=== PATIENT | male | born 1960 | race Caucasian/White ===

== ENCOUNTER → 2018-03-02 | Day surgery (SDC) | payer OTHER ==
[~2018-03-02] MED LIST: ATROPINE 0.5 MG/5 ML DISP.SYRIN. IV PRN; INSU100I13 SQ; INSU100V SQ; IV RINGERS SOLUTION,LACTATED 1,000 ML IV SCH; LIDOCAINE 2% PF Vial for OR 5 ML VIAL. ONE; ONDANSETRON PF 4 MG/2 ML VIAL. IV PRN; PROPOFOL 40 ML IV ONE
[2018-03-02 09:10] VITALS: BP 110/64
== END | disposition home or self-care (01) ==
LOC: SURG 07:09
PROVIDERS: ATTEND Internal Medicine Gastroenterology
DX: Z12.11 Encounter for screening for malignant neoplasm of colon (principal); K63.5 Polyp of colon; I10 Essential (primary) hypertension; E11.9 Type 2 diabetes mellitus without complications; G89.29 Other chronic pain; Z79.4 Long term (current) use of insulin
CPT/HCPCS: 45385; 82947; J2704; J7120; 45380; J2001

== ENCOUNTER → 2020-12-31 | Outpatient (CLI) | payer OTHER ==
[2018-03-02 09:10] VITALS: BP 110/64
[~2020-12-31] MED LIST changes: -ATROPINE 0.5 MG/5 ML DISP.SYRIN. IV PRN; -IV RINGERS SOLUTION,LACTATED 1,000 ML IV SCH; -LIDOCAINE 2% PF Vial for OR 5 ML VIAL. ONE; -ONDANSETRON PF 4 MG/2 ML VIAL. IV PRN; -PROPOFOL 40 ML IV ONE
--- NOTE | 2020-12-31 15:11 | RAD ---
EXAM: Bilateral knees, 3 views. HISTORY: Pain. COMPARISON: None. FINDINGS: 3 views of both knees are obtained. There is severe left greater than right medial compartm ent joint space narrowing. There is moderate medial compartment predominant tricompartmental spurring . There is mild bilateral genu varus. There are small knee effusions. There is enthesopathy along the superior right patella. IMPRESSION: 1. Severe left greater than right medial compartment predominant osteoarthritis of both knees with sm all joint effusions and mild genu varus. 2. No acute osseous finding. Electronically signed by: Reina Arevalo MD (12/31/2020 3:09 PM) [id number]
== END ==
LOC: RAD 14:38
PROVIDERS: ATTEND Orthopaedic Surgery
DX: M17.0 Bilateral primary osteoarthritis of knee (principal); M76.892 Other specified enthesopathies of left lower limb, excluding foot; M76.891 Other specified enthesopathies of right lower limb, excluding foot; M21.162 Varus deformity, not elsewhere classified, left knee; M21.161 Varus deformity, not elsewhere classified, right knee
CPT/HCPCS: 73560; 73565